=== PATIENT | male | born 1970 | race Caucasian/White ===

== ENCOUNTER 2020-05-31 01:52 | Outpatient (CLI) | payer BC, SELFPAY ==
[2020-05-31 18:35] LABS: SARS-CoV-2 RNA PCR Negative
== END 2020-05-31 01:53 | disposition home or self-care (01) ==
LOC: ANHCOVIDDT 01:52
PROVIDERS: PCP Family Medicine; Visit Provider Internal Medicine Gastroenterology
DX: Z01.812 Encounter for preprocedural laboratory examination (principal); Z20.828 Contact with and (suspected) exposure to other viral communicable diseases
CPT/HCPCS: 87635; C9803; U0003

== ENCOUNTER 2020-06-03 00:50 | Day surgery (SDC) | payer BC, SELFPAY ==
[2020-05-27 11:14] VITALS: BMI 26.9
[2020-06-03 12:24] VITALS: BP 111/57; PULSE 61; RESP 16; TEMP 36.3; O2SAT 98
[2020-06-03] MEDS: LACTATED RINGERS 1,000 ML 150 ML IV CONT (12:29)
--- NOTE | 2020-06-03 12:51 | WPDANESEPPF ---
Anes - Initial Pre Proc Eval Procedure: Operation Date: 06/03/20 13:30 Proposed Procedures p Screening Colonoscopy - Adrián Levy MD Date/Time: 06/03/20 12:51 Surgeon: Adrián Levy MD Pre Op Diagnosis: Neoplasm Screening Patient Data Age: 49 Gender: M Height: 6 ft 5 in Weight: 102.6 kg Last Vital Signs Temp 36.3 C L 06/03/20 12:24 Pulse 61 06/03/20 12:24 Resp 16 06/03/20 12:24 BP 111/57 L 06/03/20 12:24 Pulse Ox 98 06/03/20 12:24 Allergies Allergy/AdvReac Type Severity Reaction Status Date / Time naproxen [From Aleve] AdvReac Mild Swelling Verified 05/27/20 11:12 Home Medications Medication Instructions Recorded Confirmed Type allopurinol 300 mg tablet 300 mg PO DAILY #90 tablet 04/20/20 05/27/20 Rx Patient hx anesthesia problems: none Family hx anesthesia problems: none PMFSH Past Medical History Medical History (Updated 06/03/20 @ 12:51 by Kranthi Hernandez MD) Gout Overweight Surgical History Surgical History (Updated 06/03/20 @ 12:52 by Kranthi Hernandez MD) H/O inguinal hernia repair Family History Family History (Updated 02/02/10 @ 11:46 by DOCTOR UNKNOWN) Other Diabetes mellitus Social History Social History Smoking status: Never smoker Tobacco type: smokeless tobacco Smokeless tobacco user: chewing tobacco Second hand tobacco smoke exposure: Yes Smoking end date: 06/18/02 Alcohol intake: current Substance use: never Substance use type: does not use Living arrangements: with family Gender identity (if verbalized by the patient): Male Sexual Orientation (if Verbalized by the Patient): Straight or Heterosexual Spiritual care concerns: No Anes - Eval Final PreProcedure Day of Procedure 06/03/20 12:51 Patient weight: overweight Heart: regular rate and rhythm Lungs: clear to auscultation Airway: Mallampati scale class II Neurological: alert and oriented Last oral intake: >/= 8 hours ASA classification: II Emergent: no Anesthetic plan: proceed Anesthesia type and monitoring: general GIVS and standard monitoring Informed Consent: The patient's anesthetic plan and its attendant risks and benefits were discussed with the patient/family/POA. Questions were solicited and answers provided to the satisfaction of the patient/family/POA.
--- NOTE | 2020-06-03 13:44 | PM.HPGS ---
History of Present Illness History of Present Illness Consent: Risks, benefits, and alternatives have been discussed and questions answered. Patient agrees to proceed with procedure. Chief complaint: Neoplasm Screening Narrative: Thiago Ron is a 49 year old male here for first screening colonoscopy Review of Systems Constitutional: Constitutional: Denies headache(s) and Denies weakness Eyes: Eyes: Denies blurry vision ENT: Reports Normal hearing present, Denies headache(s) and Denies neck pain Cardiovascular: Cardiovascular: Denies chest pain and Denies dyspnea Respiratory: Respiratory: Denies dyspnea Gastrointestinal: Gastrointestinal: Reports no additional gastrointestinal complaints Genitourinary: Genitourinary: Denies dysuria Musculoskeletal: Musculoskeletal: Denies neck pain Integumentary/Breasts: Skin/Breast: Denies dry skin Neurologic: Reports Normal hearing present, Denies headache(s) and Denies weakness Psychiatric: Psychiatric: Denies anxiety Endocrine: Endocrine: Denies change in body appearance Hematologic/Lymphatic: Hematologic/Lymphatic: Denies easy bleeding Allergic/Immunologic: Allergic/Immunologic: Denies urticaria PMFSH Past Medical History Medical History (Updated 06/03/20 @ 13:45 by Adrián Levy MD) Colon cancer screening Gout Overweight Surgical History Surgical History (Updated 06/03/20 @ 12:52 by Kranthi Hernandez MD) H/O inguinal hernia repair Family History Family History (Updated 02/02/10 @ 11:46 by DOCTOR UNKNOWN) Other Diabetes mellitus Social History Social History Smoking status: Never smoker Tobacco type: smokeless tobacco Smokeless tobacco user: chewing tobacco Second hand tobacco smoke exposure: Yes Smoking end date: 06/18/02 Alcohol intake: current Substance use: never Substance use type: does not use Living arrangements: with family Gender identity (if verbalized by the patient): Male Sexual Orientation (if Verbalized by the Patient): Straight or Heterosexual Spiritual care concerns: No Meds Home Medications and Allergies Home Medications Medication Instructions Recorded Confirmed Type allopurinol 300 mg tablet 300 mg PO DAILY #90 tablet 04/20/20 05/27/20 Rx Allergies Allergy/AdvReac Type Severity Reaction Status Date / Time naproxen [From Aleve] AdvReac Mild Swelling Verified 05/27/20 11:12 Vital Signs Vital Signs - 24 hr 06/03/20 12:24 Temperature 97.3 F L Pulse Rate 61 Respiratory Rate 16 Blood Pressure 111/57 L Pulse Oximetry 98 Exam Const: General: comfortable and no acute distress HENMT: General nose exam: Normal nares present Eyes: General: appearance normal, both eyes and all related structures Neck: Neck: no JVD Resp: Auscultation: clear to auscultation bilaterally Cardio: Rate: regular rate Rhythm: regular rhythm GI: Inspection: non-distended GI Palp: Yes Soft to palpation Skin: General skin exam: normal color Neuro: General: gait normal Speech: normal speech Extrem: General: normal to inspection Psych: Mental Status: mental status grossly normal Assessment and Plan Assessment and plan (1) Colon cancer screening: Code(s): Z12.11 - Encounter for screening for malignant neoplasm of colon Status: Acute Assessment and Plan: will proceed with colonoscopy
[2020-06-03 14:13] VITALS: BP 93/42; PULSE 56; RESP 18; O2SAT 97
[2020-06-03 14:23] VITALS: BP 102/51; PULSE 60; RESP 20; O2SAT 98
[2020-06-03 14:33] VITALS: BP 120/72; PULSE 51; RESP 18; O2SAT 99
== END 2020-06-03 14:43 | disposition home or self-care (01) ==
PROVIDERS: PCP Family Medicine; Visit Provider Internal Medicine Gastroenterology
PROC: 0DJD8ZZ Inspection of Lower Intestinal Tract, Via Natural or Artificial Opening Endoscopic (ICD-10-PCS; CPT 45378; principal; 2020-06-03 13:30)
DX: Z12.11 Encounter for screening for malignant neoplasm of colon (principal); K63.5 Polyp of colon; K64.8 Other hemorrhoids; M10.9 Gout, unspecified; Z72.0 Tobacco use
CPT/HCPCS: 45385; 88305; J2704; J7120

== ENCOUNTER 2023-05-06 19:17 | Emergency (ER) | payer BC, SELFPAY ==
--- NOTE | 2023-05-06 19:22 | ED.DENTAL ---
HPI - Dental/Oral General Chief complaint: Dental/Oral Stated complaint: Toothache Time Seen by Provider: 05/06/23 19:26 Mode of arrival: ambulatory Limitations: no limitations History of Present Illness HPI Narrative: 52-year-old male presents concern for right lower dental started Sunday. He reports he has taken ibuprofen, Orajel without relief. Reports cold water dulls the pain briefly. Denies fever or trouble swallowing, denies dental injury MD Complaint: tooth pain Related Data Allergies Allergy/AdvReac Type Severity Reaction Status Date / Time naproxen [From Aleve] AdvReac Mild Swelling Verified 02/09/23 11:23 Review of Systems Review of Systems: CONSTITUTIONAL: Denies malaise, chills, sweats, or fever. EYES: Denies visual changes ENT: Denies rhinorrhea, congestion, sinus pain, otalgia or sore throat. Reports right upper and lower dental pain CARDIOVASCULAR: Denies chest pain, palpitations RESPIRATORY: Denies cough or dyspnea. SKIN: Denies rash or itching. MUSCULOSKELETAL: Denies myalgia. NEUROLOGIC: Denies numbness, weakness, or headache. All systems reviewed & are unremarkable except as noted in HPI and below PMFSH Past Medical History Medical History Colon cancer screening Gout Overweight Surgical History Surgical History H/O inguinal hernia repair Family History Family History Other Diabetes mellitus Social History Social History Smoking status: Never smoker Tobacco type: smokeless tobacco Smokeless tobacco user: chewing tobacco Second hand tobacco smoke exposure: Yes Smoking end date: 06/18/02 Alcohol intake: current Substance use: never Substance use type: does not use Living arrangements: with family Occupation/Education: occupation Gender identity (if verbalized by the patient): Male Sexual Orientation (if Verbalized by the Patient): Straight or Heterosexual Spiritual care concerns: No Comments At time of signature, agree with nursing past medical, surgical, social and family history. There is no relevant family history pertinent to the presenting complaint Exam Narrative: GENERAL: Well-appearing, well-nourished, and in no acute distress. HEAD: Normocephalic, atraumatic. EYES: PERRLA, sclera clear ENT: Nares clear, turbinates pink, no rhinorrhea or epistaxis. Mucous membranes moist. TM pearly hobbs with sharp light reflex bilaterally; no tragal tenderness. Oropharynx without erythema or lesions. Tonsils not enlarged and without exudate. No missing teeth, broken teeth. Caries noted. No facial swelling, visible abscess NECK: Supple. No lymphadenopathy. CHEST: No respiratory distress. Speaks in full sentences. HEART: Regular rate and rhythm. SKIN: Warm, dry, no visible rash. NEURO: Alert and oriented x3. PSYCH: Normal mood and affect Course Course Emergency Course: Patient is aware of diagnosis, understands and agrees to treatment plan. Anticipatory guidance given. Patient agrees to follow-up as directed and is aware of reasons to seek care at the emergency department. Portions of this record may have been created with voice recognition software Level of Care: Express Care Visit Vital Signs Vital signs: Reviewed. MDM - Dental/Oral MDM Narrative Medical decision making narrative: Patients pain and complaint coupled with physical findings are consistant with dentalgia. There are no focal signs of space occupying lesions that are compromising to the airway; no dysphagia, odynophagia, dysphonia, or dyspnea. No uvular deviation or soft palate edema. Patient is non-toxic appearing. The floor of the mouth is soft with no signs of Erich's Angina; no induration below mandible, no neck pain. Patient is without trismus or drooling
[2023-05-06 19:24] VITALS: BP 157/102; PULSE 63; RESP 20; TEMP 36.8; O2SAT 97
== END 2023-05-06 19:38 | disposition home or self-care (01) ==
PROVIDERS: Emergency Provider Nurse Practitioner; PCP Family Medicine
DX: K08.89 Other specified disorders of teeth and supporting structures (principal); M10.9 Gout, unspecified; Z87.891 Personal history of nicotine dependence
CPT/HCPCS: 99213; G0463